=== PATIENT | female | born 1975 | race Caucasian/White ===

== ENCOUNTER → 2019-11-07 17:29 | Outpatient (CLI) | payer BC, SELFPAY ==
--- NOTE | ~2019-11-07 | MM_ITS ---
EXAMINATION: MM screening [facility] BI w kashif HISTORY: Screening mammogram TECHNIQUE: Craniocaudal and mediolateral oblique 3-D tomosynthesis images were obtained and synthetic 2-D images were generated. CAD analysis was submitted and interpreted. COMPARISON: 09/21/2018 bilateral diagnostic digital mammogram 02/19/2018 bilateral diagnostic digital mammogram and Limited bilateral breast ultrasound 02/13/2018 bilateral digital screening mammogram BREAST PARENCHYMAL COMPOSITION: There are scattered areas of fibroglandular density. FINDINGS: There is no evidence of suspicious mass, calcification, or architectural distortion to sugg est malignancy in either breast. There has been no suspicious interval change. IMPRESSION: 1. No mammographic evidence of malignancy. 2. Recommend routine screening mammography in one year. BI-RADS Category 1: Negative Reviewed, dictated and finalized at location A. TMENT MANAGER
== END ==
DX: Z12.31 Encounter for screening mammogram for malignant neoplasm of breast (principal)
CPT/HCPCS: 77063; 77067

== ENCOUNTER 2020-03-03 16:34 | Emergency (ER) | payer BC, SELFPAY ==
--- NOTE | ~2020-03-03 | XR_ITS ---
EXAMINATION: XR knee RT 3V DATE: 03/03/2020 17:41 INDICATION: Right knee pain TECHNIQUE: Three views of the right knee were obtained. COMPARISON: None. FINDINGS: There is no acute fracture. Moderate tricompartmental osteoarthritis is noted. There is a s mall joint effusion. IMPRESSION: 1. Moderate osteoarthritis and small knee joint effusion without acute osseous abnormality. Reviewed, dictated and finalized at location A.
[2020-03-03 16:49] VITALS: BP 134/86; PULSE 95; RESP 16; TEMP 37.7; O2SAT 98
--- NOTE | 2020-03-03 17:15 | ED.EXTPRO ---
HPI - Extremity Problem General Chief complaint: Extremity Problem,Nontraumatic Stated complaint: right knee pain Time Seen by Provider: 03/03/20 17:15 Source: patient and RN notes reviewed Mode of arrival: ambulatory Limitations: no limitations History of Present Illness HPI Narrative: 44-year-old female presents with concern for right knee pain. Reports pain started on Monday and today her knee locked up . Reports lateral pain, unable to straighten her knee, unable to bear weight. Reports a history of knee surgery as a child. Denies any direct trauma or recent injury. Reports she recently has been riding her bike frequently, increased frequency of riding her bike. MD Complaint: joint paint Related Data Home Medications Medication Instructions Recorded Confirmed norethindrone (contraceptive) 0.35 mg DAILY 03/03/20 03/03/20 [Ragini] Allergies Allergy/AdvReac Type Severity Reaction Status Date / Time metaproterenol Allergy Unknown Unknown Verified 03/03/20 17:01 tetracycline Allergy Unknown Unknown Verified 03/03/20 17:01 NFA Allergy Unknown Unknown Uncoded 03/03/20 17:01 DOXYCYCLINE HYCLATE (Generic Allergy Y Uncoded 03/03/20 17:01 Allergy) ERYTHROMYCIN (Generic Allergy Y Uncoded 03/03/20 17:01 Allergy) MACROLIDES Allergy Unknown Uncoded 03/03/20 17:01 MINOCYCLINE HCL (Generic Allergy Y Uncoded 03/03/20 17:01 Allergy) SYMPATHOMIMADR Allergy Unknown Uncoded 03/03/20 17:01 Review of Systems Review of Systems: Narrative: CONSTITUTIONAL: Denies malaise, chills, sweats, or fever. CARDIOVASCULAR: Denies chest pain, palpitations, or edema. RESPIRATORY: Denies cough or dyspnea. SKIN: Denies bruising, swelling MUSCULOSKELETAL: Reports right knee pain, unable to straighten the knee. NEUROLOGIC: Denies numbness, weakness. All systems reviewed & are unremarkable except as noted in HPI and below PMFSH Social History Social History Gender identity (if verbalized by the patient): Female Comments At time of signature, agree with nursing past medical, surgical, social and family history. There is no relevant family history pertinent to the presenting complaint Exam Narrative: Exam Narrative: GENERAL: Well-appearing, well-nourished, and in no acute distress. HEAD: Normocephalic, atraumatic. EYES: PERRLA, conjunctivae clear NECK: Supple. CHEST: Speaks in full sentences. No respiratory distress. HEART: Regular rate and rhythm. Normal and equal peripheral pulses. EXTREMITIES: Right knee has normal sensation, no edema. Limited normal range of motion. 4/5 strength with knee flexion and extension. Normal sensation with sensitivity to light touch and pain. No open wounds, no skin tenting, no devitalized tissue or atrophy, no trophic changes, no ecchymosis, no erythema, warmth, no obvious deformity, alignment normal, lateral tenderness, nearby joints and structures intact. Distal pulses palpable and equal bilaterally, skin warm, dry, pink. Capillary refill less than 3 seconds. SKIN: Warm, dry, no rash. No posterior calf warmth, erythema, tenderness NEURO: Alert and oriented x3. PSYCH: Normal mood and affect Course Course Emergency Course: Patient is aware of diagnosis, understands and agrees to treatment plan. Anticipatory guidance given. Patient agrees to follow-up as directed and is aware of reasons to seek care at the emergency department. Portions of this record may have been created with voice recognition software Vital Signs Vital signs: Vital Signs Temperature 99.8 F H 03/03/20 16:49 Pulse Rate 95 03/03/20 16:49 Respiratory Rate 16 03/03/20 16:49 Blood Pressure 134/86 03/03/20 16:49 Pulse Oximetry 98 03/03/20 16:49 Temperature 99.8 F H 03/03/20 16:49 Pulse Rate 95 03/03/20 16:49 Respiratory Rate 16 03/03/20 16:49 Blood Pressure 134/86 03/03/20 16:49 Pulse Oximetry 98 03/03/20 16:49 Reviewed. Patient has been instructed to follow up with her primary care
== END 2020-03-03 18:07 | disposition home or self-care (01) ==
PROVIDERS: Emergency Provider Nurse Practitioner; PCP Family Medicine
DX: M25.561 Pain in right knee (principal); M17.11 Unilateral primary osteoarthritis, right knee
CPT/HCPCS: 73562; 99213; G0463

== ENCOUNTER 2020-03-25 06:32 | Outpatient (CLI) | payer BC, SELFPAY ==
--- NOTE | ~2020-03-25 | MR_ITS ---
EXAMINATION: MR knee RT wo con DATE: 03/25/2020 07:38 INDICATION: Unspecified internal derangement of right knee. TECHNIQUE: Magnetic resonance imaging (MRI) of the right knee was performed without intravenous contr ast. Sequences included axial PD-weighted FS FSE, coronal PD-weighted FSE and PD-weighted FS FSE, sag ittal PD-weighted FSE, and sagittal T2-weighted FS FSE. COMPARISON: Right knee radiographs 03/03/2020 FINDINGS: Medial compartment: Medial meniscus is normal. There is cartilage surface irregularity of tibial condyle. There is shallo w partial-thickness cartilage loss of femoral condyle. There is deep cartilage fissuring of the centr al articular surface of femoral condyle. Marginal osteophytes are noted. Lateral compartment: Lateral meniscus is normal. There is deep partial thickness cartilage loss of femoral condyle involvi ng the central articular surface. There is cartilage surface irregularity of tibial condyle. Marginal osteophytes are noted. Patellofemoral compartment: There is lateral subluxation of patella. There is full-thickness cartilage loss of patellar lateral f acet and shallow partial-thickness cartilage loss of patellar medial facet with mild subchondral romi a-like marrow signal intensity. There is cortical remodeling of patellar lateral facet. There is full -thickness cartilage loss of lateral trochlea with cortical remodeling and mild subchondral edema-lik e marrow signal intensity. Ligaments and tendons: The anterior and posterior cruciate ligaments are normal. Medial collateral ligament and lateral carlene ateral ligament complex are normal. Patellar tendon is normal. Fluid: There is a small knee joint effusion. There is trace fluid in a Smith's cyst. There is mild superfici al infrapatellar bursitis. IMPRESSION: 1. Severe chondrosis of patellofemoral compartment, moderate chondrosis of lateral compartment, and m ild chondrosis of medial compartment. 2. Small knee joint effusion. Reviewed, dictated and finalized at location A. IMPRESSION: 1. Severe chondrosis of patellofemoral compartment, moderate chondrosis of late ral compartment, and mild chondrosis of medial compartment. 2. Small knee joint effusion.
== END 2020-03-25 06:33 | disposition home or self-care (01) ==
PROVIDERS: PCP Family Medicine; Visit Provider Orthopaedic Surgery
DX: M17.11 Unilateral primary osteoarthritis, right knee (principal); M23.90 Unspecified internal derangement of unspecified knee; M25.461 Effusion, right knee
CPT/HCPCS: 73721

== ENCOUNTER → 2020-11-30 13:52 | Outpatient (CLI) | payer BC, SELFPAY ==
--- NOTE | ~2020-11-30 | MM_ITS ---
EXAMINATION: MM screening [facility] BI w kashif HISTORY: Screening mammogram TECHNIQUE: Craniocaudal and mediolateral oblique 3-D tomosynthesis images were obtained and synthetic 2-D images were generated. CAD analysis was submitted and interpreted. COMPARISON: 11/07/2019, 09/21/2018, 02/19/2018, 02/13/2018 BREAST PARENCHYMAL COMPOSITION: There are scattered areas of fibroglandular density. FINDINGS: There is no evidence of suspicious mass, calcification, or architectural distortion to sugg est malignancy in either breast. There has been no suspicious interval change. IMPRESSION: 1. No mammographic evidence of malignancy. 2. Recommend routine screening mammography in one year. BI-RADS Category 1: Negative Reviewed, dictated and finalized at location A.
== END ==
DX: Z12.31 Encounter for screening mammogram for malignant neoplasm of breast (principal)
CPT/HCPCS: 77063; 77067

== ENCOUNTER 2021-01-22 08:53 | Outpatient (CLI) | payer BC, SELFPAY ==
--- NOTE | 2021-02-08 10:52 | WPDHOMESLEEP ---
Sleep Study - Home Unattended Date of Study: 01/22/21 Ordering Provider: Dmitriy Paz DO Interpreting Provider: Kristen Esteban MD Home Sleep Study Type: Apnea Link Air Height: 1.6 m Weight: 79.379 kg Body Mass Index: 30.9 Neck Circumference (inches): 14.75 Reason for Sleep Study Hypersomnia Sleep History Robert Thompson is a 45 year old female with problems waking up during the night. She rarely awakens from sleep feeling short of breath. She frequently awakens at night with heartburn, belching or coughing. She frequently snores, and this is frequently loud enough that others complain about it. She rarely has trouble sleeping with a cold. She does rarely wakes up gasping for breath during the night. She rarely has breathing problems at night observed by others. She does not sweat excessively at night. She occasionally notices her heart pounding or beating irregularly at night. She rarely falls asleep during the day, rarely falls asleep involuntarily, never falls asleep while driving. She does not have loss of muscle tone with strong emotion. She does not have daytime difficulties due to excessive sleepiness. She does not feel paralyzed on waking or falling asleep and does not have vivid dreamlike scenes upon awakening or falling asleep. She has never free to go to sleep. She does not have nightmares. She occasional remembers her dreams and occasionally has racing thoughts. She never feels sad or depressed. She occasionally has anxiety. She frequently has muscular tension. She occasionally notices parts of her body jerking. She occasionally kicks at night. She rarely has crawling and aching feelings in her legs. She occasionally has leg pain at night. She frequently has morning jaw pain. She constantly grinds her teeth during sleep. She frequently has bothered by pain during the day. She constantly is awakened by pain at night. She constantly wakes up feeling stiff in the morning with sore or achy muscles. She constantly wakes up with pain in the neck and spine. She has headaches, palpitations, dizziness, fatigue and she takes and acids regularly. Normal bedtime is between 10:00 p.m. and 11:00 p.m. falling asleep within 5 minutes. She typically wakes 3-6 times at night to change positions, returns to sleep within 5 minutes. She wakes in the morning at 5:45 a.m. to 6:00 a.m.. On the weekends, bedtime is a little later 11:00 p.m. to 1:00 a.m., and her wake time is 7:30 a.m. to 8:00 a.m.. She estimates getting between 6-1/2 to 8 hours of sleep at night. She does not take naps in the afternoon or evening. A short nap is not refreshing. She is usually drowsy in the morning for 1 hour longer. She feels better in the morning compared other times of day. Habits: Never smoked tobacco. Caffeine 1 per day. No alcohol or recreational drugs. 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
[2021-02-08 11:33] VITALS: BMI 30.9
== END 2021-01-26 09:24 | disposition home or self-care (01) ==
LOC: ANHCSM 01-26 08:53
PROVIDERS: Visit Provider Internal Medicine Cardiovascular Disease
DX: G47.10 Hypersomnia, unspecified (principal); G47.33 Obstructive sleep apnea (adult) (pediatric)
CPT/HCPCS: 95806

== ENCOUNTER → 2021-04-12 03:46 | Outpatient (CLI) | payer BC, SELFPAY ==
[2021-04-12 17:32] LABS: SARS-CoV-2 RNA PCR Negative
== END ==
PROVIDERS: PCP Family Medicine; Visit Provider Internal Medicine Critical Care Medicine
DX: R68.89 Other general symptoms and signs (principal); Z20.822 Contact with and (suspected) exposure to COVID-19
CPT/HCPCS: C9803; U0003; U0005

== ENCOUNTER 2021-04-14 07:17 | Outpatient (CLI) | payer BC, SELFPAY ==
--- NOTE | 2021-05-11 | WPDSLEEPSTUD ---
Sleep Study Date of Study: 04/14/21 Ordering Provider: Dmitriy Paz DO Interpreting Physician: Kristen Esteban MD Sleep Study Type: CPAP Titration Height: 1.6 m Weight: 79.379 kg Body Mass Index: 30.9 Neck Circumference (inches): 16 [place]: 9 Reason for Sleep Study obstructive sleep apnea Sleep History Robert Thompson is a 45 year old female with history of SVT with ablation at age 15. She had a home sleep test January 22, 2021 with mild obstructive sleep apnea with an AHI 9.2, 52% central apneas and desaturation to 79%. She now presents for CPAP titration. She often wakes up during the night. She rarely awakens from sleep feeling short of breath. She frequently awakens at night with heartburn, belching or coughing. She frequently snores, and this is frequently loud enough that others complain about it. She rarely has trouble sleeping with a cold. She does rarely wakes up gasping for breath during the night. She rarely has breathing problems at night observed by others. She does not sweat excessively at night. She occasionally notices her heart pounding or beating irregularly at night. She rarely falls asleep during the day, rarely falls asleep involuntarily, never falls asleep while driving. She does not have loss of muscle tone with strong emotion. She does not have daytime difficulties due to excessive sleepiness. She does not feel paralyzed on waking or falling asleep and does not have vivid dreamlike scenes upon awakening or falling asleep. She has never free to go to sleep. She does not have nightmares. She occasional remembers her dreams and occasionally has racing thoughts. She never feels sad or depressed. She occasionally has anxiety. She frequently has muscular tension. She occasionally notices parts of her body jerking. She occasionally kicks at night. She rarely has crawling and aching feelings in her legs. She occasionally has leg pain at night. She frequently has morning jaw pain. She constantly grinds her teeth during sleep. She frequently has bothered by pain during the day. She constantly is awakened by pain at night. She constantly wakes up feeling stiff in the morning with sore or achy muscles. She constantly wakes up with pain in the neck and spine. She has headaches, palpitations, dizziness, fatigue and she takes and acids regularly. Normal bedtime is between 10:00 p.m. and 11:00 p.m. falling asleep within 5 minutes. She typically wakes 3-6 times at night to change positions, returns to sleep within 5 minutes. She wakes in the morning at 5:45 a.m. to 6:00 a.m.. On the weekends, bedtime is a little later 11:00 p.m. to 1:00 a.m., and her wake time is 7:30 a.m. to 8:00 a.m.. She estimates getting between 6-1/2 to 8 hours of sleep at night. She does not take naps in the afternoon or evening. A short nap is not refreshing. She is usually drowsy in the morning for 1 hour longer. She feels better in the morning compared other times of day. Habits: Never smoked tobacco. Caffeine 1 per day. No alcohol or recreational drugs. 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
[2021-05-11 00:03] VITALS: BMI 30.9
== END 2021-04-15 07:00 | disposition home or self-care (01) ==
PROVIDERS: PCP Family Medicine; Visit Provider Internal Medicine Cardiovascular Disease
DX: G47.33 Obstructive sleep apnea (adult) (pediatric) (principal); Z68.31 Body mass index [BMI] 31.0-31.9, adult
CPT/HCPCS: 95811

== ENCOUNTER → 2022-01-17 12:32 | Outpatient (CLI) | payer BC, SELFPAY ==
--- NOTE | ~2022-01-17 | MM_ITS ---
EXAMINATION: MM screening [facility] BI w kashif HISTORY: Screening mammogram TECHNIQUE: Craniocaudal and mediolateral oblique 3-D tomosynthesis images were obtained and synthetic 2-D images were generated. CAD analysis was submitted and interpreted. COMPARISON: 11/30/2020, 11/07/2019 BREAST PARENCHYMAL COMPOSITION: There are scattered areas of fibroglandular density. FINDINGS: There is no suspicious mass, calcification, or architectural distortion to suggest malignan cy in either breast. There has been no suspicious interval change. IMPRESSION: 1. No mammographic evidence of malignancy. 2. Recommend routine screening mammography in one year. BI-RADS Category 1: Negative Reviewed, dictated and finalized at location A.
== END ==
DX: Z12.31 Encounter for screening mammogram for malignant neoplasm of breast (principal)
CPT/HCPCS: 77063; 77067

== ENCOUNTER → 2023-06-14 13:39 | Outpatient (CLI) | payer OTHER, SELFPAY ==
--- NOTE | ~2023-06-14 | MM_ITS ---
EXAMINATION: MM screening [facility] BI w kashif HISTORY: Screening mammogram TECHNIQUE: Craniocaudal and mediolateral oblique 3-D tomosynthesis images were obtained and synthetic 2-D images were generated. CAD analysis was submitted and interpreted. COMPARISON: 01/17/2022, 11/30/2020, 11/07/2019 screening mammogram examinations BREAST PARENCHYMAL COMPOSITION: There are scattered areas of fibroglandular density. FINDINGS: There is no evidence of suspicious mass, calcification, or architectural distortion to sugg est malignancy in either breast. There has been no suspicious interval change. IMPRESSION: 1. No mammographic evidence of malignancy. 2. Recommend routine screening mammography in one year. BI-RADS Category 1: Negative Reviewed, dictated and finalized at location A.
== END ==
DX: Z12.31 Encounter for screening mammogram for malignant neoplasm of breast (principal)
CPT/HCPCS: 77063; 77067

== ENCOUNTER → 2023-06-20 10:56 | Outpatient (CLI) | payer OTHER, SELFPAY ==
--- NOTE | ~2023-06-20 | US_ITS ---
EXAMINATION: US soft tissue upper back DATE: 06/20/2023 11:12 INDICATION: Massive subcutaneous tissue of back. TECHNIQUE: Multiple grayscale and Doppler ultrasound images of the back were obtained. COMPARISON: None FINDINGS: There is a 2.6 x 2.7 x 0.8 cm subcutaneous mass in the left upper posterior thorax that is isoechoic to normal subcutaneous fat with similar echotexture, consistent with a lipoma. IMPRESSION: 1. 2.7 cm subcutaneous lipoma in the left upper posterior thorax. Reviewed, dictated and finalized at location E.
== END ==
PROVIDERS: PCP Nurse Practitioner Family; Visit Provider Nurse Practitioner Family
DX: R22.2 Localized swelling, mass and lump, trunk (principal)
CPT/HCPCS: 76604

== ENCOUNTER 2024-06-28 08:14 | Outpatient (CLI) | payer OTHER, SELFPAY ==
--- NOTE | ~2024-06-28 | XR_ITS ---
EXAMINATION: XR UGIAC wo kub DATE: 06/28/2024 09:01 INDICATION: Abdominal pain. Gastroesophageal reflux disease. TECHNIQUE: The patient drank thick barium, gas-producing crystals, and thin barium. Fluoroscopy of th e esophagus, stomach, and proximal small bowel was performed. Fluoroscopy exposure time was 0.6 minut es. The total number of images was 234. Total dose-area product was 2.182 Gy-cm^2. COMPARISON: None. FINDINGS: There is no mass or stricture of the esophagus. Esophageal motility is normal. There is a s mall sliding hiatal hernia. There was no gastroesophageal reflux with provocative maneuvers. The stom ach and proximal small bowel show normal folding patterns. Surgical clips in the right upper quadrant are likely from cholecystectomy. IMPRESSION: 1. Small sliding hiatal hernia. Reviewed, dictated and finalized at location A.
== END 2024-06-28 08:15 | disposition home or self-care (01) ==
PROVIDERS: PCP Physician Assistant; Visit Provider Physician Assistant
DX: K21.9 Gastro-esophageal reflux disease without esophagitis (principal); K44.9 Diaphragmatic hernia without obstruction or gangrene
CPT/HCPCS: 74246

== ENCOUNTER 2024-09-12 12:22 | Outpatient (CLI) | payer OTHER, SELFPAY ==
--- NOTE | ~2024-09-12 | MM_ITS ---
EXAMINATION: MM screening [facility] BI w kashif HISTORY: Screening TECHNIQUE: Craniocaudal and mediolateral oblique 3-D tomosynthesis images were obtained and synthetic 2-D images were generated. CAD analysis was submitted and interpreted. COMPARISON: Comparison to multiple prior studies sequentially, with oldest reviewed study dated 09/21. BREAST PARENCHYMAL COMPOSITION: Not dense: There are scattered areas of fibroglandular density.. FINDINGS: There is no evidence of suspicious mass, calcification, or architectural distortion to sugg est malignancy in either breast. There has been no suspicious interval change. IMPRESSION: 1. No mammographic evidence of malignancy. 2. Recommend routine screening mammography in one year. BI-RADS Category 1: Negative Reviewed, dictated and finalized at location B. M AGENT
== END 2024-09-12 12:23 | disposition home or self-care (01) ==
LOC: MICIMG 12:23
PROVIDERS: PCP Physician Assistant
DX: Z12.31 Encounter for screening mammogram for malignant neoplasm of breast (principal)
CPT/HCPCS: 77063; 77067

== ENCOUNTER 2024-10-04 09:45 | Outpatient (CLI) | payer OTHER, SELFPAY ==
--- NOTE | ~2024-10-04 | CT_ITS ---
CLINICAL INDICATION: Upper abdominal pain COMPARISON: None. TECHNIQUE: Multiple contiguous axial images of the abdomen and pelvis were performed following the ad ministration of with 100 mL Omnipaque-350 intravenous contrast The dose-length product (DLP) was 726.50 mGy-cm. Automated exposure control and iterative reconstruction technique were employed. FINDINGS/OBSERVATIONS: Visualized lower thorax: The bilateral lung bases are clear. The heart is of normal size, without pericardial effusion. A moderate hiatal hernia is present. Liver: The liver enhances homogeneously and is not enlarged measuring 14 cm in longitudinal dimension. Gallbladder and biliary system: The gallbladder is surgically absent. Pancreas: The pancreas enhances homogeneously without ductal dilatation. Spleen: The spleen enhances homogeneously and is not enlarged measuring 9cm in longitudinal dimension. Kidneys: The bilateral kidneys enhance symmetrically without hydronephrosis or renal calculi. Adrenal glands: Unremarkable. Gastrointestinal tract: Retained fecal stasis within the colon Appendix: The appendix is not definitively visualized. However, no pericecal inflammatory change is identified suggest the presence of acute appendicitis. Vasculature: Unremarkable. Lymph nodes: No pathologically enlarged or morphologically suspicious lymph nodes within the retroperitoneum or at the root of the mesentery. Pelvic structures: The bladder is distended, and otherwise unremarkable. The uterus is anteverted and anteflexed. Body wall and musculoskeletal: Trace degenerative disease within the lumbosacral spine at the level of L5/S1 with osteophyte formati on, disc space narrowing, and vacuum phenomena. IMPRESSION: Moderate hiatal hernia, possibly the source of patient's upper abdominal pain. No additional abnormality is appreciated. Reviewed, dictated and finalized at location A. E HAND
== END 2024-10-04 09:46 | disposition home or self-care (01) ==
PROVIDERS: PCP Physician Assistant; Visit Provider Physician Assistant
DX: R10.10 Upper abdominal pain, unspecified (principal); K44.9 Diaphragmatic hernia without obstruction or gangrene
CPT/HCPCS: 74177; Q9967